=== PATIENT | female | born 1945 | race Caucasian/White ===

== ENCOUNTER 2019-06-02 06:29 | Day surgery (SDC) ==
[2019-05-31 10:43] LABS: HEMATOCRIT 46.3 % (37.0-47.0); HEMOGLOBIN 15.4 g/dL (12.0-16.0); MCH 30.3 PG (27-31); MCHC 33.3 g/dL (33-37); MCV 91.1 FL (81-99); MPV 9.8 FL (7.4-10.4); RBC 5.08 XMIL (4.2-5.4); RDW 13.9 % (11.5-14.5); WBC 7.24 X1000 (4.8-10.8)
[2019-05-31 11:35] LABS: CALCIUM 9.8 mg/dL (8.8-10.2); CREATININE 1.1 mg/dL (0.5-0.9)
[2019-06-02] MEDS ORDERED: LR 1,000 ML ONE (07:10)
[2019-06-02] MEDS ORDERED: KEFZOL 1 GM/D5W 1 GM/50 ML IVPB ONE (07:10)
[2019-06-02] MEDS ORDERED: DIPRIVAN 1% ONE (07:53)
[2019-06-02] MEDS ORDERED: FENTANYL ONE (07:53)
[2019-06-02] MEDS ORDERED: REGLAN ONE (07:57)
[2019-06-02] MEDS ORDERED: PEPCID ONE (07:57)
[2019-06-02] MEDS ORDERED: METHYLENE BLUE 0.5% ONE (08:14)
[2019-06-02] MEDS ORDERED: SENSORCAINE-MPF 0.5%/EPI 1:200,000 ONE (08:21)
[2019-06-02] MEDS ORDERED: PITRESSIN ONE (09:20)
[2019-06-02] MEDS ORDERED: OFIRMEV 1000 MG/ISOTONIC SOLN 1,000 MG/100 ML BOTTLE ONE (09:20)
[2019-06-02] MEDS ORDERED: DECADRON ONE (09:20)
[2019-06-02] MEDS ORDERED: XYLOCAINE-MPF 2% ONE (09:20)
[2019-06-02] MEDS ORDERED: ZOFRAN ONE (09:20)
[2019-06-02] MEDS ORDERED: QUELICIN (DOSE) ONE (09:20)
[2019-06-02] MEDS: DILAUDID ONE ×4 (10:17→10:37)
[2019-06-02] MEDS ORDERED: NORCO-7.5 PO PRN (10:34)
[2019-06-02] MEDS ORDERED: PHENERGAN IM PRN (10:45)
--- NOTE | 2019-06-02 10:48 | OPERATIVE NOTE ---
PROCEDURE DATE: 06/02/2019 PREOPERATIVE DIAGNOSIS: Ductal carcinoma in situ, mid left breast. POSTOPERATIVE DIAGNOSIS: Ductal carcinoma in situ, mid left breast. PRINCIPAL PROCEDURES: 1. Injection of periareolar blue dye for identification of left axillary sentinel lymph nodes. 2. Left total mastectomy. 3. Left axillary sentinel lymph node biopsy times 2. SURGEON: Diana Cortez MD. ANESTHESIA: General. ESTIMATED BLOOD LOSS: 50 mL. DRAINS: Two #10 flat Larry-Espinosa drains within our wound. INDICATIONS: Ms. Irasema Bernal is a 74-year-old white female, who recently underwent bilateral breast screening mammograms, which showed some indeterminate microcalcifications, mid left breast. The left stereotactic biopsy was performed which documented ductal carcinoma in situ mid left breast. We discussed surgical treatment options, and she chose a left total mastectomy. Because we were doing a total mastectomy, I recommended that left axillary sentinel lymph nodes be biopsied at the same time. DESCRIPTION OF PROCEDURE: The patient initially presented to outpatient surgery. Nuclear Medicine came and injected periareolar radioactive colloid for identification of sentinel lymph nodes. She then went to the operating room, where she received general anesthesia and was intubated. Her left breast was prepped and draped within a sterile field. She received Ancef prophylactically. I began the procedure by injecting about 5 mL of methylene blue in the left periareolar area using a 10 mL syringe and a 22-gauge needle. We massaged this methylene blue for several minutes. I marked my elliptical incision which encompassed the nipple- areolar complex and the previous needle biopsy site upper mid aspect of the left breast. This was an oblique transverse mastectomy incision. I made my incision with a 10 blade scalpel, and then I used the cautery to create our flaps. So, we created the superior flap to the left clavicle, medial flap to the sternum, inferior flap to the inframammary fold. Then, I removed the breast from medial to lateral. As we encountered bleeding, I used cautery to control it. Before removing the breast from the axillary contents, we identified 2 axillary sentinel lymph nodes. One was stained blue and had low counts outside the axilla we labeled that as sentinel lymph node #1 and sent it down for permanent section. We removed a second sentinel node which had counts of over 100,000, a 10 second count over 100,000, after removal from the left axilla. We labeled this sentinel lymph node #2 We palpated the axilla and there were no abnormally enlarged or palpable left axillary lymph nodes. We removed the breast tissue from the soft tissue of the axilla again using cautery. The left breast was sent for permanent section. We irrigated the wound with warm saline. This was removed using suction. Any evidence of bleeding was controlled using the cautery. I placed two 10 flat Larry-Espinosa drains, one along the left pectoralis major muscle and one within the left axilla. They were brought out through separate stab incisions below the inframammary fold and secured to the skin with a 2-0 nylon stitch. I closed the wound in layers. First layer was 3-0 popoff Vicryl stitches, closed subcutaneous tissue. Skin was closed with 4-0 Monocryl subcuticular stitch. Xeroform followed by dry dressing was applied and Medipore tape. She tolerated the procedure well with plans for her to go the recovery room and then be hospitalized overnight. cc: MD David Schmidt MD
[2019-06-02] MEDS ORDERED: BLISTEX MEDICATED BERRY LIP BALM TOP PRN (13:04)
[2019-06-02] MEDS: MOTRIN PO SCH ×2 (13:24→20:07)
[2019-06-02 16:39] LABS: URINE SOURCE CLEAN CATCH
[2019-06-02 16:50] LABS: BILIRUBIN URINE NEGATIVE (NEGATIVE); BLOOD URINE NEGATIVE (NEGATIVE); COLOR YELLOW; GLUCOSE URINE NEGATIVE (NEGATIVE); KETONE URINE TRACE mg/dL (NEGATIVE); LEUKOCYTES URINE SMALL (NEGATIVE); NITRITE URINE POSITIVE (NEGATIVE); PROTEIN URINE 30 mg/dL (NEGATIVE); SP GRAVITY URINE 1.023; TURBIDITY URINE CLEAR (CLEAR); UROBILINOGEN URINE NORMAL (NORMAL)
[2019-06-02 16:54] LABS: UR EPITHELIAL CELLS <10 /HPF (<10); URINE BACTERIA NEGATIVE /HPF; URINE RBC <10 /HPF (<10); URINE WBC 20-40 /HPF (<10)
[2019-06-02] MEDS: TYLENOL PO SCH (17:31)
[2019-06-02 17:33] LABS: URINE CASTS NONE SEEN; URINE CRYSTALS NONE SEEN; URINE YEAST NONE SEEN
[2019-06-02] MEDS: PLAQUENIL PO SCH (20:07)
[2019-06-02] MEDS: PERIDEX MT SCH (20:08)
[2019-06-02] MEDS: PEPCID PO SCH (20:08)
[2019-06-02] MEDS ORDERED: DESYREL PO SCH (21:00)
[2019-06-03] MEDS: TYLENOL PO SCH ×3 (00:43→16:15)
[2019-06-03] MEDS: MOTRIN PO SCH ×2 (04:00→17:14)
[2019-06-03] MEDS ORDERED: KLOR-CON PO SCH (09:00)
[2019-06-03] MEDS ORDERED: HYGROTON PO SCH (09:00)
[2019-06-03] MEDS ORDERED: CARDIZEM CD PO SCH (09:00)
[2019-06-03] MEDS: PERIDEX MT SCH (10:37)
[2019-06-03] MEDS: PEPCID PO SCH (10:39)
[2019-06-03] MEDS: PLAQUENIL PO SCH (10:40)
[2019-06-03 15:42] VITALS: BP 106/59
--- NOTE | 2019-06-03 21:25 | DISCHARGE SUMMARY ---
ADMISSION DATE: 06/02/2019 DISCHARGE DATE: 06/03/2019 ADMITTING DIAGNOSIS: Ductal carcinoma in situ left breast. DISCHARGE DIAGNOSIS: Ductal carcinoma in situ left breast. PRINCIPAL PROCEDURE: Left total mastectomy with left axillary sentinel lymph node biopsy on 06/02/2019. DISCHARGE DIET: Regular. DISCHARGE DISPOSITION: She will return to our outpatient offices next week. DISCHARGE MEDICATIONS: She is to return to her home medication. DISCHARGE DISABILITIES: Full. HOSPITAL COURSE: Ms. Irasema Bernal is a 74-year-old white female who has been diagnosed with left ductal carcinoma in situ. We discussed surgical treatment options and she chose a left total mastectomy. Because she chose a total mastectomy for DCIS I recommended left axillary sentinel lymph node biopsy. She was admitted on the day of surgery and she went to the operating room, underwent a left total mastectomy and we found 2 sentinel lymph nodes left axilla and they were sent for permanent section. Two drains were left at the time of surgery. She went to the recovery room and then to the [address] [place] [address] [place]. On postop day 1, she was able to ambulate around in the room. She was comfortable with her drains. It was felt safe to discharge her home under the care of her family. Her pain was well controlled on Tylenol and Advil. Plans are to have her see me next week so that we can remove drains and check her wound and go over her pathology report. She knows to contact us with any problems such as increasing swelling, pain or redness. cc: Diana Cortez MD
== END 2019-06-03 19:00 | disposition home or self-care (01) ==
LOC: OR 06:29 → 4N 06:29 → OR 06-03 19:00
PROVIDERS: ATTEND Surgery